=== PATIENT | female | born 1950 | race Caucasian/White ===

== ENCOUNTER 2018-02-02 13:56 | Emergency (ER) | payer MEDICARE, MEDICAID ==
[2018-02-02] MEDS ORDERED: HYDROcodone/Acetaminophen 5/325 mg Tablet ONE (16:29)
--- NOTE | 2018-02-02 16:46 | RAD ---
RIGHT KNEE FOUR VIEWS: History: Fall with injury. Comparison: 01-10-17 FINDINGS: Knee prosthesis again noted. Components appear in adequate position and alignment and are unchanged f rom prior exam. There is a cortical defect anterior distal femur just above the prosthesis. This is s table in appearance from 01-10-17. IMPRESSION: No acute finding. POS: [facility]
--- NOTE | 2018-02-02 16:47 | RAD ---
CERVICAL SPINE FOUR VIEWS: History: Fall with injury to neck. FINDINGS: Cervical vertebrae maintain normal height and alignment. Disc spaces are preserved. Mild degenerative spurring is noted. IMPRESSION: No evidence of fracture. POS: [facility]
--- NOTE | 2018-02-02 16:53 | RAD ---
LUMBAR SPINE 3 VIEWS: Date: 02/02/18 HISTORY: Fall, low back pain. FINDINGS/IMPRESSION: Degenerative changes are seen with mild levoscoliosis of the lumbar spine. There are postop changes o f laminectomy in the lower lumbar spine. No compression fracture is seen. POS: [facility]
== END 2018-02-02 15:29 | disposition home or self-care (01) ==
LOC: ERS 13:56
DX: S13.4XXA Sprain of ligaments of cervical spine, initial encounter (principal); S30.0XXA Contusion of lower back and pelvis, initial encounter; S80.01XA Contusion of right knee, initial encounter; I10 Essential (primary) hypertension; G89.29 Other chronic pain; M19.90 Unspecified osteoarthritis, unspecified site; F41.9 Anxiety disorder, unspecified; F32.9 Major depressive disorder, single episode, unspecified; F17.210 Nicotine dependence, cigarettes, uncomplicated; W10.9XXA Fall (on) (from) unspecified stairs and steps, initial encounter
CPT/HCPCS: 72040; 72100; 99406

== ENCOUNTER 2019-10-19 14:18 | Emergency (ER) | payer MEDICARE, MEDICAID ==
[~2019-10-19 14:18] MED LIST: Iopamidol-370 76% 500 ML 1 ML ONE
[2019-10-19 15:06] LABS: #Eosinphils 0.1 thou/uL (0.0-0.7); #Lymphocytes 1.4 thou/uL (1.20-3.40); #Monocytes 0.4 thou/uL (0.11-0.59); #Neutrophils 4.9 thou/uL (1.40-6.50); %Basophils 0.4 % (0.0-1.0); %Eosinophils 0.8 % (0.0-10.0); %Lymphocytes 20.8 % (21.0-51.0); %Monocytes 5.7 % (0.0-10.0); %Neutrophils 72.3 % (42.0-75.0); Hemoglobin 14.3 g/dL (12.0-16.0); Mean Corpuscular HGB CONC 34.3 g/dL (32.0-36.0); Mean Corpuscular Hemoglobin 32.7 pg (27.0-31.0); Mean Corpuscular Volume 95.3 fL (78.0-98.0); Mean Platelet Volume 10.3 fL (7.4-10.4); Platelet Count 165 thou/uL (130-400); Red Blood Cell (RBC) Count 4.37 mill/uL (4.20-5.40); White Blood Cell (WBC) Count 6.7 thou/uL (4.8-10.8)
--- NOTE | 2019-10-19 15:18 | RAD ---
RADIOGRAPH CHEST 1 VIEW: DATE: 10/19/2019 HISTORY: 68-year-old female with chest pain FINDINGS: There are no airspace densities, pulmonary edema, pneumothorax, or cardiomegaly. The lateral costophr enic angles are sharp. IMPRESSION: No acute cardiopulmonary findings.
[2019-10-19 15:39] LABS: ALT (SGPT) 14 U/L (8-55); AST (SGOT) 30 U/L (5-34); Albumin 3.8 g/dL (3.4-4.8); Alkaline Phosphatase 103 U/L (40-110); Anion Gap 19 mmol/L (10-20); BUN (Urea Nitrogen) 12 mg/dL (9.8-20.1); Bilirubin, Total 0.3 mg/dL (0.2-1.2); Calc. Creatinine Clearance 0 mL/min (70-130); Calcium 8.8 mg/dL (7.8-10.44); Carbon Dioxide 20 mmol/L (23-31); Chloride 104 mmol/L (98-107); Estimated GFR-MDRD 59; Glucose 147 mg/dL (80-115); Lipase 24 U/L (8-78); Potassium 4.5 mmol/L (3.5-5.1); Protein, Total 7.8 g/dL (6.0-8.3); Sodium 138 mmol/L (136-145)
[2019-10-19] MEDS ORDERED: Aspirin Chewable 81 MG TAB ONE (16:00)
--- NOTE | 2019-10-19 16:44 | CT ---
CT arteriogram chest with IV contrast and 3-D imaging HISTORY: Chest pain. FINDINGS: There is good contrast opacification pulmonary arteries and thoracic aorta with normal bran юлия of the great vessels at the aortic arch. Mild arterial calcification. Lungs are hyperinflated. Scattered areas of mild peripheral scarring. At the posterolateral aspect of the left lower lobe, there are 2 small nonspecific subpleural nodules, measuring 0.3 cm and 0.2 cm greatest diameters. No pleural fluid or pneumothorax. No enlarged lymph nodes evident within the medi astinum. Prominent degenerative changes of the thoracic spine including prominent osteophytosis of the right f acet and significant central canal stenosis at the lower thoracic spine. IMPRESSION: No CT evidence of pulmonary embolus. Atherosclerosis. Incidental-type findings as detailed above.
[2019-10-19] MEDS ORDERED: Acetaminophen 500 MG TAB ONE (17:33)
[2019-10-19] MEDS ORDERED: Lidocaine Viscous Sol 2% 15 ml UD Cup ONE (18:01)
[2019-10-19] MEDS ORDERED: Mag-Al 1200 mg/1200 mg/30 ML UDCUP ONE (18:01)
[2019-10-19 19:02] LABS: Troponin I Less than 0.010 ng/mL (< 0.028)
== END 2019-10-19 19:20 | disposition home or self-care (01) ==
LOC: ERS 14:18
DX: R07.89 Other chest pain (principal); M79.7 Fibromyalgia; M19.90 Unspecified osteoarthritis, unspecified site; I10 Essential (primary) hypertension; F41.9 Anxiety disorder, unspecified; F32.9 Major depressive disorder, single episode, unspecified; F17.210 Nicotine dependence, cigarettes, uncomplicated
CPT/HCPCS: 36415; 71045; 71275; 80053; 83690; 84484; 85025; 85379; 93005; 94760; 96360; 99406; Q9967

== ENCOUNTER 2019-10-20 11:18 | Emergency (ER) | payer MEDICARE, MEDICAID ==
[2019-10-20 12:59] LABS: #Eosinphils 0.1 thou/uL (0.0-0.7); #Lymphocytes 1.6 thou/uL (1.20-3.40); #Monocytes 0.4 thou/uL (0.11-0.59); #Neutrophils 3.3 thou/uL (1.40-6.50); %Basophils 0.5 % (0.0-1.0); %Lymphocytes 29.9 % (21.0-51.0); %Monocytes 7.8 % (0.0-10.0); %Neutrophils 60.8 % (42.0-75.0); Mean Corpuscular HGB CONC 32.5 g/dL (32.0-36.0); Mean Corpuscular Hemoglobin 31.6 pg (27.0-31.0); Mean Corpuscular Volume 97.4 fL (78.0-98.0); Mean Platelet Volume 9.4 fL (7.4-10.4); Platelet Count 147 thou/uL (130-400); RBC Distribution Width 11.9 % (11.5-14.5); Red Blood Cell (RBC) Count 4.12 mill/uL (4.20-5.40); White Blood Cell (WBC) Count 5.4 thou/uL (4.8-10.8)
[2019-10-20 13:23] LABS: CKMB 0.8 ng/mL (0-6.6)
--- NOTE | 2019-10-20 13:25 | RAD ---
Portable chest: 10/20/2019 COMPARISON: 10/19/2019 HISTORY: Chest pain FINDINGS: Postoperative clips are noted in the epigastric region. Heart and mediastinal contours are stable. There is mild increased linear interstitial density. No focal consolidation or alveolar edema. IMPRESSION: No acute findings.
[2019-10-20 13:27] LABS: ALT (SGPT) 11 U/L (8-55); AST (SGOT) 17 U/L (5-34); Albumin 3.4 g/dL (3.4-4.8); Alkaline Phosphatase 94 U/L (40-110); Anion Gap 8 mmol/L (10-20); BUN (Urea Nitrogen) 13 mg/dL (9.8-20.1); Bilirubin, Total 0.3 mg/dL (0.2-1.2); Calc. Creatinine Clearance 0 mL/min (70-130); Calcium 8.7 mg/dL (7.8-10.44); Carbon Dioxide 28 mmol/L (23-31); Chloride 107 mmol/L (98-107); Estimated GFR-MDRD 65; Glucose 133 mg/dL (80-115); Potassium 3.9 mmol/L (3.5-5.1); Protein, Total 6.4 g/dL (6.0-8.3); Sodium 139 mmol/L (136-145)
== END 2019-10-20 14:35 | disposition home or self-care (01) ==
LOC: ERS 11:18
DX: I10 Essential (primary) hypertension (principal); R07.9 Chest pain, unspecified; F43.0 Acute stress reaction; Z86.718 Personal history of other venous thrombosis and embolism
CPT/HCPCS: 36415; 71045; 80053; 82553; 84484; 85025; 93005

== ENCOUNTER 2020-07-06 15:43 | Emergency (ER) | payer MEDICARE, MEDICAID ==
[2020-07-07 14:28] LABS: SARS-CoV-2 MS2 Positive; SARS-CoV-2 N Gene Positive; SARS-CoV-2 S Gene Positive; SARS-CoV-2 by NAA DETECTED (NotDetected); SARS-CoV-2 orf1ab Positive
== END 2020-07-06 16:00 | disposition home or self-care (01) ==
LOC: ERS 15:43
DX: U07.1 COVID-19 (principal)
CPT/HCPCS: 87635; 99284; U0003

== ENCOUNTER 2020-08-13 14:25 | Emergency (ER) | payer MEDICARE, MEDICAID ==
--- NOTE | 2020-08-13 15:35 | RAD ---
LEFT WRIST THREE VIEWS: History: Wrist pain FINDINGS: Fracture of the distal radius and ulna. Mildly comminuted and impacted fracture of the radius with sl ight displacement of the distal radius. Fracture line seen involving the distal diaphysis of the ulna . The ulnar fracture shows evidence of callus formation. There may be callus formation at the radial fracture as well. Recommend clinical correlation as to timing of these fractures. 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 Osteopenia. IMPRESSION: Fractures distal radius and ulna as discussed above. POS: [facility]
--- NOTE | 2020-08-13 15:39 | RAD ---
RIGHT KNEE FOUR VIEWS: History: Knee pain. Comparison: 02-02-18 FINDINGS: Knee prosthesis is noted. No evidence of loosening. No evidence of acute fracture. No evidence of amanda nt effusion. Fragmentation of the patella is again noted and similar to the prior exam. IMPRESSION: No acute findings. POS: [facility]
--- NOTE | 2020-08-13 15:57 | RAD ---
LEFT SHOULDER THREE VIEWS: History: Shoulder pain. FINDINGS: Degenerative spurring at the AC joint. Moderate degenerative change of the glenohumeral joint with sp urring from the humeral head and glenoid. No fracture or dislocation. IMPRESSION: Degenerative change as described. POS: [facility]
--- NOTE | 2020-08-13 16:01 | RAD ---
LEFT KNEE FOUR VIEWS: History: Knee pain. FINDINGS: Moderate degenerative changes. Narrowing of the medial joint space with marginal spurring. No fractur e. No joint effusion. IMPRESSION: Mild to moderate degenerative change. POS: [facility]
--- NOTE | 2020-08-13 16:28 | RAD ---
Exam: Chest one view HISTORY:Fever and cough Comparison: 10/20/2019 FINDINGS: Cardiac silhouette: Normal Aorta: Atherosclerosis Pulmonary vessels: Normal Costophrenic angles: Clear LUNGS: Masses or consolidation. Hyperinflation with chronic lung parenchymal changes. Pneumothorax: None Osseous abnormalities: None IMPRESSION: Inflation with chronic lung parenchymal changes.
--- NOTE | 2020-08-13 16:28 | RAD ---
LEFT FOREARM: Indications: Pain FINDINGS: There are fractures seen involving the distal radius and ulna. Ulnar fracture is somewhat oblique in the distal diaphysis and the radial fracture is distal radius extending to the articular surface. The re is evidence of callus formation indicating that both of these fractures are probably subacute. Rec ommend clinical correlation. IMPRESSION: As above. POS: [facility]
== END 2020-08-13 17:03 | disposition home or self-care (01) ==
LOC: ERS 14:25
DX: S52.502A Unspecified fracture of the lower end of left radius, initial encounter for closed fracture (principal); S52.602A Unspecified fracture of lower end of left ulna, initial encounter for closed fracture; I10 Essential (primary) hypertension; F32.9 Major depressive disorder, single episode, unspecified; F17.210 Nicotine dependence, cigarettes, uncomplicated; Z79.899 Other long term (current) drug therapy; W01.0XXA Fall on same level from slipping, tripping and stumbling without subsequent striking against object, initial encounter
CPT/HCPCS: 29125; 71045

== ENCOUNTER 2022-04-16 20:46 | Emergency (ER) | payer OTHER, MEDICARE, MEDICAID ==
[2022-04-16] MEDS ORDERED: Naproxen 500 MG TAB ONE (21:12)
== END 2022-04-16 21:18 | disposition home or self-care (01) ==
LOC: ERS 20:46
DX: S29.012A Strain of muscle and tendon of back wall of thorax, initial encounter (principal); S80.211A Abrasion, right knee, initial encounter; I10 Essential (primary) hypertension; F17.210 Nicotine dependence, cigarettes, uncomplicated; V49.59XA Passenger injured in collision with other motor vehicles in traffic accident, initial encounter
CPT/HCPCS: 99283

== ENCOUNTER 2022-05-15 09:27 | Outpatient (CLI) | payer MEDICARE, MEDICAID | END 2022-05-15 09:28 | disposition home or self-care (01) | LOC: BICMAMMO 09:27 | PROVIDERS: ATTEND Family Medicine | DX: Z12.31 Encounter for screening mammogram for malignant neoplasm of breast (principal); Z80.3 Family history of malignant neoplasm of breast | CPT/HCPCS: 77063; 77067 ==

== ENCOUNTER 2022-05-24 07:48 | Outpatient (CLI) | payer MEDICARE, MEDICAID | END 2022-05-24 07:49 | disposition home or self-care (01) | LOC: SCSMRI 07:48 | PROVIDERS: ATTEND Neurological Surgery | DX: M47.12 Other spondylosis with myelopathy, cervical region (principal); M47.26 Other spondylosis with radiculopathy, lumbar region | CPT/HCPCS: 72156; 72158; 82565 ==

== ENCOUNTER 2022-08-02 11:21 | Outpatient (CLI) | payer MEDICARE, MEDICAID | END 2022-08-02 11:22 | disposition home or self-care (01) | LOC: LABBT 11:21 | PROVIDERS: ATTEND Neurological Surgery | DX: Z20.822 Contact with and (suspected) exposure to COVID-19 (principal) | CPT/HCPCS: 87811 ==

== ENCOUNTER 2022-08-07 07:56 | Day surgery (SDC) | payer OTHER, MEDICAID ==
[2022-08-06 10:22] VITALS: BMI 31.9
[2022-08-07] MEDS ORDERED: EPINEPHrine 1 MG/ML AMP ONE (08:16)
[2022-08-07] MEDS ORDERED: Bupivacaine PF 0.5% 30 ML VIAL ONE (08:16)
[2022-08-07] MEDS ORDERED: fentaNYL Citrate/PF 100 MCG/2 ML SYRINGE ONE ×2 (08:45→10:49)
[2022-08-07] MEDS ORDERED: Sodium Chloride 0.9% 100 ML ONE ×2 (09:00→12:27)
[2022-08-07] MEDS ORDERED: CEFAZOLIN 2 GM VIAL ONE ×2 (09:00→12:27)
[2022-08-07] MEDS ORDERED: Ondansetron PF 4 MG/2 ML Vial ONE (09:13)
[2022-08-07] MEDS ORDERED: Ketorolac Tromethamine 30 MG/ML VIAL ONE (09:13)
[2022-08-07] MEDS ORDERED: Rocuronium Bromide 10 MG/ML (10ML VIAL) ONE (09:13)
[2022-08-07] MEDS ORDERED: PROPOFOL 200 MG/20 ML VIAL ONE (09:13)
[2022-08-07] MEDS ORDERED: Dexamethasone 20 MG/5 ML VIAL ONE (09:13)
[2022-08-07] MEDS ORDERED: Lidocaine 1% MPF 2 ML VIAL ONE (09:13)
[2022-08-07] MEDS ORDERED: SUGAMMADEX SODIUM 200 MG/2 ML VIAL ONE (10:27)
[2022-08-07] MEDS ORDERED: Promethazine HCl 25 MG/ML VIAL IM PRN (10:58)
[2022-08-07] MEDS ORDERED: Promethazine HCl 25 MG/ML VIAL IVPB PRN (10:58)
[2022-08-07] MEDS ORDERED: HYDROmorphone 2 MG/ML VIAL SLOW IVP PRN (10:58)
[2022-08-07] MEDS ORDERED: Ondansetron HCl/PF 4 MG/2 ML Vial IVP PRN (10:58)
[2022-08-07] MEDS ORDERED: Morphine Sulfate 2 MG/ML SYRINGE SLOW IVP PRN (10:58)
[2022-08-07] MEDS ORDERED: PACU-Morphine 4MG/ML VIAL SLOW IVP PRN (10:58)
== END 2022-08-07 13:20 | disposition home or self-care (01) ==
LOC: SDC 07:56
PROVIDERS: ATTEND Neurological Surgery
PROC: 0SB20ZZ Excision of Lumbar Vertebral Disc, Open Approach (ICD-10-PCS; principal; 2022-08-07)
DX: M51.16 Intervertebral disc disorders with radiculopathy, lumbar region (principal); M48.061 Spinal stenosis, lumbar region without neurogenic claudication; G89.4 Chronic pain syndrome; M19.90 Unspecified osteoarthritis, unspecified site; M81.0 Age-related osteoporosis without current pathological fracture; I10 Essential (primary) hypertension; K21.9 Gastro-esophageal reflux disease without esophagitis; F17.210 Nicotine dependence, cigarettes, uncomplicated; Z79.899 Other long term (current) drug therapy; Z88.5 Allergy status to narcotic agent; Z88.7 Allergy status to serum and vaccine; Z98.84 Bariatric surgery status
CPT/HCPCS: 76000; J0171; J0690; J1100; J1885; J2405; J2704; J3490; S0020

== ENCOUNTER 2022-12-09 09:57 | Outpatient (CLI) | payer OTHER, MEDICAID | END 2022-12-09 09:58 | disposition home or self-care (01) | LOC: BICRAD 09:57 | PROVIDERS: ATTEND Neurological Surgery | DX: M25.559 Pain in unspecified hip (principal); M16.0 Bilateral primary osteoarthritis of hip ==

== ENCOUNTER 2023-07-30 10:37 | Emergency (ER) | payer OTHER, MEDICAID ==
[2023-07-30] MEDS ORDERED: Orphenadrine Citrate 60 MG/2 ML VIAL ONE (11:50)
[2023-07-30 12:24] LABS: #Monocytes 0.8 thou/uL (0.11-0.59); %Basophils 0.4 % (0.0-1.0); %Eosinophils 0.5 % (0.0-10.0); %Lymphocytes 20.7 % (21.0-51.0); %Monocytes 10.5 % (0.0-10.0); %Neutrophils 67.8 % (42.0-75.0); Hematocrit 42.3 % (36.0-47.0); Hemoglobin 13.8 g/dL (12.0-16.0); Mean Corpuscular HGB CONC 32.6 g/dL (32.0-36.0); Mean Corpuscular Hemoglobin 32.2 pg (27.0-31.0); Mean Corpuscular Volume 98.6 fl (78.0-98.0); Mean Platelet Volume 11.7 fL (7.4-10.4); Platelet Count 201 10x3/uL (130-400); RBC Distribution Width 12.4 % (11.5-14.5); Red Blood Cell (RBC) Count 4.29 mill/uL (4.20-5.40); White Blood Cell (WBC) Count 7.3 10x3/uL (4.8-10.8)
[2023-07-30 12:57] LABS: ALT (SGPT) 13 U/L (8-55); AST (SGOT) 20 U/L (5-34); Albumin 3.8 g/dL (3.4-4.8); Alkaline Phosphatase 81 U/L (40-110); Anion Gap 11 mmol/L (10-20); BUN (Urea Nitrogen) 11 mg/dL (9.8-20.1); Bilirubin, Total 0.8 mg/dL (0.2-1.2); Calc. Creatinine Clearance 0 mL/min (70-130); Calcium 9.2 mg/dL (7.8-10.44); Carbon Dioxide 26 mmol/L (23-31); Chloride 102 mmol/L (98-107); Estimated GFR 75; Glucose 106 mg/dL (83-110); Potassium 3.8 mmol/L (3.5-5.1); Protein, Total 7.8 g/dL (5.8-8.1); Sodium 135 mmol/L (136-145); Troponin I Less than 0.010 ng/mL (< 0.028)
== END 2023-07-30 13:31 | disposition home or self-care (01) ==
LOC: ERS 10:37
DX: S13.4XXA Sprain of ligaments of cervical spine, initial encounter (principal); S09.90XA Unspecified injury of head, initial encounter; R55 Syncope and collapse; M19.012 Primary osteoarthritis, left shoulder; I10 Essential (primary) hypertension; F17.210 Nicotine dependence, cigarettes, uncomplicated; W18.30XA Fall on same level, unspecified, initial encounter
CPT/HCPCS: 36415; 70450; 70486; 71045; 72125; 72128; 80053; 84443; 84484; 85025; 93005; 96372; J2360

== ENCOUNTER 2024-10-26 11:36 | Outpatient (CLI) | payer MEDICARE, MEDICAID | END 2024-10-26 11:37 | disposition home or self-care (01) | LOC: BICMAMMO 11:36 | PROVIDERS: ATTEND Family Medicine | DX: Z12.2 Encounter for screening for malignant neoplasm of respiratory organs (principal); Z13.820 Encounter for screening for osteoporosis; Z87.891 Personal history of nicotine dependence; M85.852 Other specified disorders of bone density and structure, left thigh | CPT/HCPCS: 71271; 77080 ==

== ENCOUNTER 2025-07-16 18:46 | Emergency (ER) | payer MEDICARE, MEDICAID ==
[2025-07-16 19:12] LABS: #Basophils Less than 0.03 10x3/uL (0.0-0.2); #Eosinophils 0.09 10x3/uL (0.0-0.7); #Monocytes 0.58 10x3/uL (0.11-0.59); #Neutrophils 2.42 10x3/uL (1.40-6.50); %Basophils 0.3 % (0.0-1.0); %Eosinophils 1.4 % (0.0-10.0); %Lymphocytes 51.6 % (21.0-51.0); %Monocytes 9.0 % (0.0-10.0); %Neutrophils 37.5 % (42.0-75.0); Hematocrit 39.4 % (36.0-47.0); Hemoglobin 12.9 g/dL (12.0-16.0); Mean Corpuscular Hemoglobin 31.5 pg (27.0-31.0); Mean Corpuscular Volume 96.3 fL (78.0-98.0); Platelet Count 195 10x3/uL (130-400); Red Blood Cell (RBC) Count 4.09 mill/uL (4.20-5.40); White Blood Cell (WBC) Count 6.45 10x3/uL (4.8-10.8)
[2025-07-16 19:26] LABS: Acetaminophen Less than 10 mcg/mL (Less than 10); Salicylate Less than 8.0 mg/dL (Less than 8.0)
[2025-07-16 19:27] LABS: ALT (SGPT) 12 U/L (Less than 34); AST (SGOT) 24 U/L (11-34); Albumin 3.5 g/dL (3.1-4.5); Alkaline Phosphatase 86 U/L (40-110); Anion Gap 13 mmol/L (10-20); BUN (Urea Nitrogen) 16 mg/dL (9.8-20.1); Bilirubin, Total 0.2 mg/dL (0.3-1.2); CK (CPK) 77 U/L (29-168); Calc. Creatinine Clearance 0 mL/min (70-130); Calcium 8.2 mg/dL (7.8-10.44); Carbon Dioxide 18 mmol/L (23-31); Chloride 104 mmol/L (98-107); Globulin 3.4 g/dL (2.4-3.5); Glucose 68 mg/dL (83-110); Potassium 3.7 mmol/L (3.5-5.1); Sodium 131 mmol/L (136-145)
[2025-07-16 19:37] LABS: INR-International Normal Ratio 1.2; PTT 26.6 sec (22.9-36.1); Prothrombin Time 15.1 sec (12.0-14.7)
== END 2025-07-16 19:55 | disposition left against medical advice (07) ==
LOC: ERS 18:46
DX: Z53.21 Procedure and treatment not carried out due to patient leaving prior to being seen by health care provider (principal); Z79.01 Long term (current) use of anticoagulants
CPT/HCPCS: 70450; 72125; 80053; 80307; 82550; 84484; 85025; 85610; 85730; 94760; G0390